=== PATIENT | male | born 1990 | race Caucasian/White ===

== ENCOUNTER 2019-10-20 23:44 | Emergency (ER) | payer SELFPAY ==
[2019-10-20 23:53] VITALS: BP 108/57; PULSE 89; TEMP 97.5; BMI 25.1
--- NOTE | 2019-10-21 00:26 | PDOC ---
Documentation entered by Ashley Miner SCRIBE, acting as scribe for Adriana Solorio MD. Adriana Solorio MD: This documentation has been prepared by the Isidra rios Nirvannie, SCRIBE, under my direction and personally reviewed by me in its entirety. I confirm that the documentation accurately reflects all work, treatment, procedures, and medical decision making performed by me. 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 at bedside notes both children at home are sick and she experienced similar symptoms a month As per patient, yesterday he had one episode of blood when ejaculating and today he experienced an episode of urinary hesitancy. He denies any fevers, chills, nausea, vomiting, diaphoresis, diarrhea, or constipation. Allergies: NKDA - Physicial Exam PE: 10/21/19 00:58 GENERAL: Well-appearing, well-nourished. No apparent distress. HEENT: Normocephalic, atraumatic. PERRL, EOM intact. CARDIOVASCULAR: +Tachycardic. Regular rhythm. PULMONARY: +Diffuse wheezing. ABDOMEN: Soft, non-distended, non-tender. EXTREMITIES: +Right BKA. SKIN: Warm, dry. No rash NEUROLOGICAL: No focal neurological deficits. - Medical Decision Making 10/21/19 01:36 29-year-old male who presents with complaint of cough, URI symptoms and bloody ejaculate Past medical history significant for septic meningitis that resulted in amputation of his right leg as a child Social history tobacco use for 15 years on exam he has diffuse exp wheezing / plan steroids,bronchodilators,reassess
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
[2019-10-21] MEDS ORDERED: ALBUTEROL SO4 0.083% IH SOL 2.5 MG/3 ML VIAL.NEB. NEB PRN (01:00)
[2019-10-21] MEDS ORDERED: ALBUTEROL SO4 2.5/IPRATROPIUM 0.5 INH SOL 3 ML VIAL.NEB. NEB ONE ×2 (01:00→01:39)
[2019-10-21] MEDS: ACETAMINOPHEN 325 MG TABLET (FP) PO ONE ×2 (01:26→01:56)
[2019-10-21] MEDS ORDERED: predniSONE 20 MG TABLET (UD) PO ONE (01:36)
[2019-10-21] MEDS ORDERED: ACETAMINOPHEN 325 MG TABLET (FP) ONE (01:39)
[2019-10-21 01:48] LABS: BASO % 0.4 % (0-2.0); EOS % 3.9 % (0-4.5); HEMATOCRIT 41.3 % (35.4-49); HEMOGLOBIN 13.2 GM/dL (11.7-16.9); LYMPH % 28.5 % (8-40); MCH 22.8 pg (25.7-33.7); MEAN CELL VOLUME 71.2 fl (80-96); MEAN PLT VOLUME 8.6 fl (7.5-11.1); MONO % 7.6 % (3.8-10.2); NEUT % 59.6 % (42.8-82.8); PLATELET COUNT 276 K/MM3 (134-434); RDW 14.3 % (11.9-15.9); WHITE BLOOD COUNT 12.4 K/mm3 (4.0-10.0)
[2019-10-21 01:53] LABS: EPI CELLS 0.8 /HPF (0-5/HPF); HYALINE CASTS 2 /lpf (0-8); PH,URINE 6.5 (5.0-8.0); URINE APPEARANCE CLEAR; URINE BACTERIA 1.7 /hpf (NEGATIVE); URINE BILIRUBIN NEGATIVE (NEGATIVE); URINE COLOR YELLOW; URINE GLUCOSE (UA) NEGATIVE (NEGATIVE); URINE KETONE NEGATIVE (NEGATIVE); URINE LEUK ESTERASE NEGATIVE (NEGATIVE); URINE NITRITE NEGATIVE (NEGATIVE); URINE PROTEIN 1+ (NEGATIVE); URINE RBC 1 /hpf (0-4); URINE WBC 3 /hpf (0-5)
[2019-10-21] MEDS ORDERED: AZITHROMYCIN 250 MG TABLET PO ONE (02:10)
[2019-10-21 02:17] LABS: ALBUMIN 4.2 g/dl (3.4-5.0); ALK PHOS 87 U/L (45-117); ANION GAP 8 MMOL/L (8-16); BILIRUBIN,TOTAL 0.4 mg/dL (0.2-1); BLOOD UREA NITROGEN 14.1 mg/dL (7-18); CALCIUM 9.3 mg/dL (8.5-10.1); CHLORIDE 103 mmol/L (98-107); CO2 30 mmol/L (21-32); GLUCOSE,RANDOM 102 mg/dL (74-106); POTASSIUM 3.7 mmol/L (3.5-5.1); SGOT/AST 22 U/L (15-37); SGPT/ALT 26 U/L (13-61); SODIUM 141 mmol/L (136-145); TOT PROT 8.1 g/dl (6.4-8.2)
[2019-10-21] MEDS ORDERED: AZITHROMYCIN 250 MG TABLET ONE (02:38)
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
--- NOTE | 2019-10-21 15:34 | EKG ---
Test Reason : Blood Pressure : / mmHG Vent. Rate : 079 BPM Atrial Rate : 079 BPM P-R Int : 150 ms QRS Dur : 092 ms QT Int : 368 ms P-R-T Axes : 037 052 046 degrees QTc Int : 421 ms NORMAL SINUS RHYTHM EARLY REPOLARIZATION NORMAL ECG NO PREVIOUS ECGS AVAILABLE Confirmed by NICKOLAS BERGER MD ([id number]) on 10/21/2019 3:33:48 PM Referred By: Confirmed By:NICKOLAS BERGER MD
--- NOTE | 2019-10-23 10:29 | EKG ---
Test Reason : Blood Pressure : / mmHG Vent. Rate : 068 BPM Atrial Rate : 068 BPM P-R Int : 148 ms QRS Dur : 090 ms QT Int : 374 ms P-R-T Axes : 045 060 060 degrees QTc Int : 397 ms NORMAL SINUS RHYTHM EARLY REPOLARIZATION NORMAL ECG NO PREVIOUS ECGS AVAILABLE Confirmed by KRISHAN BOWER, JEREMY ([id number]) on 10/23/2019 10:28:44 AM Referred By: Confirmed By:JEREMY NICKERSON MD
== END 2019-10-21 03:15 | disposition home or self-care (01) ==
LOC: JER 23:44
PROC: 3E0F7GC Introduction of Other Therapeutic Substance into Respiratory Tract, Via Natural or Artificial Opening (ICD-10-PCS; principal; 2019-10-20)
DX: J06.9 Acute upper respiratory infection, unspecified (principal); G03.9 Meningitis, unspecified; Z89.511 Acquired absence of right leg below knee; F17.210 Nicotine dependence, cigarettes, uncomplicated; Z87.828 Personal history of other (healed) physical injury and trauma
CPT/HCPCS: 36415; 71046-TC-FY; 80053; 81003; 84484; 85025; 87804; 93005; 93010; 99282-25

== ENCOUNTER 2019-10-28 15:17 | Emergency (ER) | payer SELFPAY ==
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
[2019-10-28 15:40] VITALS: TEMP 98; BMI 26.6
--- NOTE | 2019-10-28 16:05 | PDOC ---
Attending Attestation - Resident Resident Name: Raymond Sainz - HPI HPI: 10/28/19 19:01 Pt presents to the ED with multiple complaints, including pain in his popliteal fossa, pain in his BKA stump and hematuria. PAtient denies urinary complaints as was recently seen in the ED for bloody ejaculate that was thought to be secondary to microvascular trauma. Denies fever, abdominal or flank pain, nausea or vomiting. The pain in the popliteal fossa appears to be chronic. PAtient reports a history of multiple abscesses in that area. Patient also reports new onset pain and tenderness at the terminal portion of his BKA stump. This pain has prevented him from wearing his prosthetic leg and has been worsening over the last three days. 10/31/19 07:13 10/31/19 07:14 - Physicial Exam PE: 10/31/19 07:13 Agree with resident exam. Gen: alert, NAD. CV: rrr no m/r/g/ Pulm: cTA b/l. Abdomen: soft, non tender, non distended without guarding or rebound. Sking exam: In the popliteal fossa, there is a large amount of scar tissue, but no erythema. Stump: + exquisite tenderness with mild redness and warmth. 10/31/19 07:13 10/31/19 07:14 - Medical Decision Making 10/31/19 07:18 Pt presents to the ED complaining of hematuria and pain in his stump. There is some evidence of cellulitis in the patient's stump. Will treat with antibiotics. UA is negative for infection. No symptoms suggestive of stone. Will discharge home with instructions to follow up with urology.
[2019-10-28 16:18] LABS: BASO % 0.7 % (0-2.0); EOS % 5.1 % (0-4.5); HEMATOCRIT 33.4 % (35.4-49); HEMOGLOBIN 10.8 GM/dL (11.7-16.9); LYMPH % 23.1 % (8-40); MCH 22.8 pg (25.7-33.7); MCHC 32.3 g/dl (32.0-35.9); MEAN CELL VOLUME 70.5 fl (80-96); MEAN PLT VOLUME 8.1 fl (7.5-11.1); MONO % 5.6 % (3.8-10.2); NEUT % 65.5 % (42.8-82.8); PLATELET COUNT 294 K/MM3 (134-434); RBC 4.74 M/mm3 (4.00-5.60); RDW 14.4 % (11.9-15.9); WHITE BLOOD COUNT 11.1 K/mm3 (4.0-10.0)
[2019-10-28 16:20] LABS: EPI CELLS 4.1 /HPF (0-5/HPF); HYALINE CASTS 4 /lpf (0-8); URINE APPEARANCE CLOUDY; URINE BILIRUBIN NEGATIVE (NEGATIVE); URINE COLOR RED; URINE GLUCOSE (UA) NEGATIVE (NEGATIVE); URINE KETONE NEGATIVE (NEGATIVE); URINE LEUK ESTERASE TRACE (NEGATIVE); URINE NITRITE NEGATIVE (NEGATIVE); URINE PROTEIN 2+ (NEGATIVE); URINE UROBILINOGEN 0.2 mg/dL (0.2-1.0); URINE WBC 13 /hpf (0-5)
[2019-10-28 16:42] LABS: URINE BACTERIA FEW /hpf (NEGATIVE)
[2019-10-28 16:46] LABS: ALBUMIN 3.4 g/dl (3.4-5.0); BILIRUBIN,TOTAL 0.3 mg/dL (0.2-1); BLOOD UREA NITROGEN 11.3 mg/dL (7-18); CREATININE 0.7 mg/dL (0.55-1.3); POTASSIUM 4.5 mmol/L (3.5-5.1)
[2019-10-28 16:56] VITALS: BP 127/84; PULSE 79
--- NOTE | 2019-10-28 17:59 | PDOC ---
History of Present Illness - General Chief Complaint: Pain Stated Complaint: BLOOD CLOTS Time Seen by Provider: 10/28/19 15:33 History Source: Patient, Old Records Exam Limitations: No Limitations - History of Present Illness Initial Comments: HPI: 29 y/o male presenting to [facility] ER complaining of intermittent pain in his right lower extremity for the past several years. Worse recently. Noticed a small amount of drainage from the posterior portion of the right knee, as well as dry skin. Pt is s/p R BKA at age 1. Believes his prosthesis was last revised over a year ago. Does not follow with any physicians for outpatient treatment. Previously was treated at [facility], but does not want to return. Takes Percocet for pain. Pt also complaining of an episode of hematuria after sexual intercourse this afternoon. Presented to this facility on 21 Oct 2019 for a similar episode that occured with ejaculation. Pt denies lower abdominal or flank pain. Denies dysuria, dyspareunia, testicular pain, penis pain, or discharge. Was referred to a urologist, but has not scheduled an appointment. The pt is also complaining of a cough productive of green sputum. Denies recent color change. Was evaluated for this complaint at last visit. CXR unremarkable for acute cardiopulmonary process. Was prescribed Azythromycin but was not able to fill the prescription. Denies fevers, chills, or chest pain. Pt also reported using Adderall today. 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 Constitutional- Well-developed, well-nourished adult male in no acute distress or obvious discomfort. Found semi-fowlers on hospital bed. Answered all questions appropriately and completely. Head- Normocephalic. No obvious external signs of trauma. Cardiovascular / Chest- Regular rate and regular rhythm. No murmur, rubs, clicks , or gallops. Peripheral pulses- radial pulses full. Respiratory- Breathing unlabored. Able to speak in multi-word responses without pausing for breath. Equal chest rise and fall. Clear to auscultation bilaterally. No stridor, no wheezing, no rhonchi. Gastrointestinal- abdomen is soft, non-tender, non-distended. No overlying skin lesions or obvious signs of trauma. No R or L CVA tenderness. Male : Genital exam revealed normally developed male genitalia. Uncircumcised penis. No scrotal mass or tenderness, no hernias or inguinal lymphadenopathy. No perineal or perianal abnormalities are seen. No genital lesions or urethral discharge. emergency room tech chaperoned exam. Neuro- Alert and oriented x4. Moving all four extremities spontaneously. Skin / MSK- S/p R BKA. Tender areas of induration without fluctuance, warmth, or overlying erythema to stump and posterior portion of the knee. No drainage. Possible chronic tunneling noted. Psych- Affect- appropriate. Mood- normal. Speech was non-labored, non- pressured. MDM: 29 y/o male presenting with right lower extremity pain, hematuria, and cough. Afebrile. Vitals unremarkable for hypotension or tachycardia. Physical exam as described above. Suspect three likely unrelated complaints. Labs ordered by E prior to my evaluation. 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 Possible acute infection. Will prescribe 7 day course of Bactrim and Aquaphor. Will refer the pt to [facility] orthopedic clinic for assistance with prosthesis. Will refer pt to general surgeon for help with the tunneling wound. Second, suspect the hematuria is possibly secondary to microtrauma. UA unremarkable for nitrites. Trace leukocyte esterase and small amount of pyuria. Low suspicion for acute hemorrhagic cystitis without further urinary symptoms, as well as temporal relation of symptoms to sexual intercourse. GC/C/Trich amplification pending. Will place call back request. Will re-emphasise the urology referral. Third, the cough is likely viral URI vs acute bronchitis. Pts vitals are not suggestive of more serious infection. CXR unremarkable for consolidation or pleural effusion. No interval change when compared to study obtained last week per ED wet read. Radiology report pending. Discussed physical exam findings, laboratory results, and xrays findings with pt. Answered all questions. Provided return precautions. pt expressed verbal understanding and agreement with plan to discharge home with outpatient follow up. Provided copies of todays results. Pts girlfriend obtained medications from [facility]. Pt requested a pair of crutches, which were prescribed. After discharge, the pt was found with a large bag containing hospital supplies , including boxes of gloves, alcohol wipes, and other hospital supplies. Hospital security confiscated the items and requested the pt leave the hospital grounds. Raymond Sainz M.D., PGY2 Emergency Medicine Resident Is this a multiple visit Asthma Patient?: No Past History - Past Medical History Allergies/Adverse Reactions: Allergies Allergy/AdvReac Type Severity Reaction Status Date / Time No Known Allergies Allergy Verified 10/28/19 18:18 Home Medications: Ambulatory Orders Albuterol Sulfate Inhaler - [Ventolin Hfa Inhaler -] 1 - 2 inh PO QID #1 inhaler 10/21/19 Azithromycin 250 mg PO DAILY #4 tablet 10/21/19 Methylprednisolone [Medrol Dose Giancarlo] 4 mg PO ASDIR #21 tablet 10/21/19 Crutch 1 each MC 1XPACU #2 each 10/28/19 Mineral Oil/Pet Hy-Phl [Aquaphor] 1 applic TP TID PRN #1 jar 10/28/19 Sulfamethoxazole/Trimethoprim [Bactrim Ds -] 1 tab PO BID #14 tablet 10/28/19 COPD: No - Immunization History Immunization Up to Date: Yes - Psycho Social/Smoking Cessation Hx Smoking History: Never smoked Number of Cigarettes Smoked Daily: 1 Hx Alcohol Use: No Drug/Substance Use Hx: No *Physical Exam - Vital Signs Last Vital Signs Temp Pulse Resp BP Pulse Ox 98 F 79 18 127/84 100 10/28/19 15:35 10/28/19 16:55 10/28/19 16:55 10/28/19 16:55 10/28/19 16:55 ED Treatment Course - LABORATORY CBC & Chemistry Diagram: 10/28/19 15:52 10/28/19 15:52 - ADDITIONAL ORDERS Additional order review: Laboratory Results 10/28/19 10/28/19 15:52 15:52 Sodium 141 Potassium 4.5 Chloride 106 Carbon Dioxide 29 Anion Gap 7 L BUN 11.3 Creatinine 0.7 Est GFR (CKD-EPI)AfAm 145.74 Est GFR (CKD-EPI)NonAf 125.75 Random Glucose 85 Calcium 9.0 Total Bilirubin 0.3 AST 19 ALT 22 Alkaline Phosphatase 84 Total Protein 7.0 Albumin 3.4 Urine Color Red Urine Appearance Cloudy Urine pH 6.0 Ur Specific [place] 1.009 L Urine Protein 2+ H Urine Glucose (UA) Negative Urine Ketones Negative Urine Blood 3+ H Urine Nitrite Negative Urine Bilirubin Negative Urine Urobilinogen 0.2 Ur Leukocyte Esterase Trace Urine WBC (Auto) 13 Urine Casts (Auto) 4 U Pathogenic Cast Auto None U Epithel Cells (Auto) 4.1 Urine Bacteria (Auto) Few 10/28/19 15:52 RBC 4.74 MCV 70.5 L MCHC 32.3 RDW 14.4 MPV 8.1 Neutrophils % 65.5 Lymphocytes % 23.1 Monocytes % 5.6 Eosinophils % 5.1 H Basophils % 0.7 Discharge - Discharge Information Problems reviewed: Yes Clinical Impression/Diagnosis: Cough, Suspected soft tissue infection Hematuria Qualifiers: Hematuria type: unspecified type Qualified Code(s): R31.9 - Hematuria, unspecified Condition: Good Disposition: HOME - Admission No - Additional Discharge Information Prescriptions: Crutch 1 each MC 1XPACU #2 each Mineral Oil/Pet Hy-Phl [Aquaphor] 1 applic TP TID PRN #1 jar PRN Reason: Dry Skin Sulfamethoxazole/Trimethoprim [Bactrim Ds -] 1 tab PO BID #14 tablet - Follow up/Referral Referrals: [facility] [Other] Frankie Regalado MD [Staff Physician] - Osmin Alexander MD [Staff Physician] - [facility] [place] [Provider Group] CallBack Reminder: GC/C/T Amp - Patient Discharge Instructions Patient Printed Discharge Instructions: DI for Cough -- Adult, DI for Hematuria Additional Instructions: You were seen today for pain in your right leg, blood when you peed, and a cough. The three things are likely not related. Your leg pain is likely caused by a skin infection from your prosthetic limb. I have sent a prescription for an antibiotic and a lotion to the pharmacy. Take as directed. You need to follow up with an orthopedic clinic and a general surgery clinic to help with the prosthetic and the wound. I have included recommendations. You will need to call the numbers to make appointments. The blood when you pee is possibly from microtrauma from sex. You need to follow up with a urologist in the next few weeks. You will need to call the number to make an appointment. The last test for sexually transmitted diseases will take a few days to finish. The hospital will call you if the test is positive. The cough is likely from an upper respiratory infection. These are usually caused by a virus, which is not treated with antibiotics. Your chest xray was normal today. I have referred you to the [facility] at [place] for you to start seeing a primary care doctor. You will need to call the number to make an appointment. All of today's and last week's results are attached to this packet. Print Language: BARBADIAN - Post Discharge Activity
[2019-10-28] MEDS ORDERED: ACETAMINOPHEN 500 MG TABLET (FP) PO ONE (18:03)
--- NOTE | 2019-10-29 09:45 | EKG ---
Test Reason : Blood Pressure : / mmHG Vent. Rate : 063 BPM Atrial Rate : 063 BPM P-R Int : 150 ms QRS Dur : 088 ms QT Int : 378 ms P-R-T Axes : 044 057 052 degrees QTc Int : 386 ms NORMAL SINUS RHYTHM EARLY REPOLARIZATION NORMAL ECG WHEN COMPARED WITH ECG OF 21-OCT-2019 00:44, NO SIGNIFICANT CHANGE WAS FOUND Confirmed by MD Soler Daniel ([id number]) on 10/29/2019 9:45:25 AM Referred By: Confirmed By:João Soler MD
== END 2019-10-28 19:23 | disposition home or self-care (01) ==
LOC: JER 15:17
DX: Z03.89 Encounter for observation for other suspected diseases and conditions ruled out (principal); R05 Cough; R31.9 Hematuria, unspecified
CPT/HCPCS: 36415; 71046-TC-FY; 80053; 81003; 85025; 87086; 87491; 87591; 87661; 93005; 93010; 99283-25